=== PATIENT | male | born 1990 | race Caucasian/White ===

== ENCOUNTER 2019-05-11 15:04 | Inpatient (IN) | payer BC ==
[~2019-05-11] VITALS: Ht 172.7 cm; Wt 72.1 kg
[2019-05-11 15:29] VITALS: BP 155/80
[2019-05-11] MEDS ORDERED: INFLUENZA VIRUS VACCINE QVS 2019-20 (3YR+)/PF 60 MCG/0.5 ML SYRINGE IM ONE (15:45)
[2019-05-11] MEDS ORDERED: LITH300C3 PO (16:07)
[2019-05-11 16:42] VITALS: BP 134/82
[2019-05-11] MEDS ORDERED: BACITRACIN 28.4 GM OINTMENT TP PRN (17:45)
[2019-05-11] MEDS: LITHIUM CARBONATE 300 MG CAPSULE PO SCH (21:38)
[2019-05-11] MEDS: ZOLPIDEM TARTRATE 10 MG TABLET PO PRN (22:04)
[2019-05-12] MEDS: LORazepam 2 MG TABLET PO PRN ×2 (00:55→08:00)
[2019-05-12 05:56] VITALS: BP 120/82
[2019-05-12] MEDS: LITHIUM CARBONATE 300 MG CAPSULE PO SCH ×3 (08:00→17:06)
[2019-05-12 08:52] VITALS: BP 146/84
[2019-05-12] MEDS ORDERED: LORazepam 2 MG/ML VIAL ONE (10:00)
[2019-05-12] MEDS ORDERED: HALOPERIDOL LACTATE 5 MG/ML VIAL ONE (10:01)
[2019-05-12] MEDS ORDERED: DiphenhydrAMINE HCL 50 MG/ML VIAL ONE (10:01)
[2019-05-12] MEDS ORDERED: LORazepam 2 MG/ML VIAL IM ONE ×3 (10:30→22:00)
[2019-05-12] MEDS ORDERED: HALOPERIDOL LACTATE 5 MG/ML VIAL IM ONE ×2 (10:30→22:00)
[2019-05-12] MEDS ORDERED: DiphenhydrAMINE HCL 50 MG/ML VIAL IM ONE ×3 (10:30→22:00)
[2019-05-12 16:01] VITALS: BP 153/82
[2019-05-13 06:51] VITALS: BP 136/84
[2019-05-13 07:30] LABS: BASOPHILS % (AUTO) 0.3 % (0.0-2.0); EOSINOPHILS % (AUTO) 1.3 % (1.0-6.0); LYMPHOCYTES # (AUTO) 1.7 K/uL (1.0-4.8); LYMPHOCYTES % (AUTO) 16.2 % (22.0-44.0); MEAN CORPUSCULAR HEMOGLOBIN 32.1 pg (26.0-34.0); MEAN CORPUSCULAR VOLUME 94 fL (80-100); MONOCYTES # (AUTO) 0.9 K/uL (0.1-1.0); MONOCYTES % (AUTO) 8.2 % (2.0-9.0); NEUTROPHILS # (AUTO) 7.7 K/uL (1.8-7.7); PLATELET COUNT (AUTO) 320 K/uL (150-450); RED BLOOD CELL COUNT(AUTO) 4.35 MIL/uL (4.50-5.90); RED CELL DISTRIBUTION WIDTH 13.1 % (11.5-14.5)
[2019-05-13 07:49] LABS: LITHIUM 0.31 mmol/L (0.60-1.20)
[2019-05-13 08:08] LABS: ALANINE AMINOTRANSFERASE 33 U/L (12-78); ALBUMIN 4.7 g/dL (3.4-5.0); ALKALINE PHOSPHATASE 52 U/L (46-116); ANION GAP 11 mmol/L (8-16); ASPARTATE AMINOTRANSFERASE 60 U/L (15-37); BILIRUBIN,TOTAL 1.1 mg/dL (0.1-1.0); CARBON DIOXIDE 26 mmol/L (22-29); CHLORIDE 101 mmol/L (98-107); CHOL/HDL RATIO 1.5 (4.2-7.3); CHOLESTEROL 128 mg/dL (131-200); CREATININE 0.91 mg/dL (0.60-1.30); FREE T4 (FREE THYROXINE) 1.41 ng/dL (0.76-1.46); GLOMERULAR FILTR. RATE CALC > 60 mL/min (>60); GLUCOSE,RANDOM 102 mg/dL (70-110); HDL CHOLESTEROL 83 mg/dL (40-60); LDL CHOL (CALC.) 40 mg/dL (0-130); POTASSIUM 3.5 mmol/L (3.5-5.1); SODIUM SERUM 138 mmol/L (136-145); TRIGLYCERIDES 25 mg/dL (15-150); UREA NITROGEN, BLOOD 7 mg/dL (7-18)
[2019-05-13 08:11] VITALS: BP 136/67
[2019-05-13] MEDS: LITHIUM CARBONATE 300 MG CAPSULE PO SCH ×3 (08:13→16:14)
[2019-05-13] MEDS ORDERED: SERTRALINE HCL 100 MG TABLET PO SCH (10:45)
[2019-05-13] MEDS: LORazepam 1 MG TABLET PO SCH ×2 (12:15→16:14)
[2019-05-13] MEDS: RisperiDONE 1 MG TABLET PO SCH ×2 (12:28→16:14)
[2019-05-13 16:05] VITALS: BP 133/76
[2019-05-13] MEDS ORDERED: RisperiDONE 1 MG TABLET PO SCH (21:00)
[2019-05-13] MEDS: ZOLPIDEM TARTRATE 10 MG TABLET PO PRN (21:09)
[2019-05-13] MEDS ORDERED: DiphenhydrAMINE HCL 50 MG/ML VIAL ONE (23:45)
[2019-05-13] MEDS ORDERED: HALOPERIDOL LACTATE 5 MG/ML VIAL ONE (23:45)
[2019-05-13] MEDS ORDERED: LORazepam 2 MG/ML VIAL ONE (23:46)
[2019-05-14] VITALS (9 sets, daily range): BP systolic 120–141; BP diastolic 70–86
[2019-05-14] MEDS ORDERED: HALOPERIDOL LACTATE 5 MG/ML VIAL IM ONE ×2 (00:15→22:00)
[2019-05-14] MEDS: LORazepam 1 MG TABLET PO SCH ×3 (09:00→16:35)
[2019-05-14] MEDS: RisperiDONE 1 MG TABLET PO SCH ×3 (09:00→16:35)
[2019-05-14] MEDS: LITHIUM CARBONATE 300 MG CAPSULE PO SCH ×3 (09:00→16:36)
[2019-05-14] MEDS: AMOX TR/POT CLAV 875 MG/125 MG TABLET PO SCH (16:35)
[2019-05-14] MEDS ORDERED: LORazepam 2 MG/ML VIAL ONE (21:54)
[2019-05-14] MEDS ORDERED: DiphenhydrAMINE HCL 50 MG/ML VIAL ONE (21:54)
[2019-05-14] MEDS ORDERED: HALOPERIDOL LACTATE 5 MG/ML VIAL ONE (21:55)
[2019-05-14] MEDS ORDERED: DiphenhydrAMINE HCL 50 MG/ML VIAL IM ONE ×2 (22:00)
[2019-05-14] MEDS ORDERED: LORazepam 2 MG/ML VIAL IM ONE ×2 (22:00)
[2019-05-15] MEDS: LORazepam 1 MG TABLET PO PRN ×2 (07:50→20:35)
[2019-05-15] MEDS: AMOX TR/POT CLAV 875 MG/125 MG TABLET PO SCH ×2 (07:50→16:21)
[2019-05-15] MEDS: LORazepam 1 MG TABLET PO SCH ×3 (07:50→16:21)
[2019-05-15] MEDS: LITHIUM CARBONATE 300 MG CAPSULE PO SCH (07:50)
[2019-05-15] MEDS: RisperiDONE 1 MG TABLET PO SCH (07:50)
[2019-05-15 10:33] VITALS: BP 136/80
[2019-05-15] MEDS: LITHIUM CARBONATE 300 MG TABLET PO SCH ×2 (12:30→16:22)
[2019-05-15] MEDS: RisperiDONE 2 MG TABLET PO SCH ×2 (12:43→16:21)
[2019-05-15 16:30] VITALS: BP 120/69
[2019-05-16] MEDS: ZOLPIDEM TARTRATE 10 MG TABLET PO PRN (00:12)
[2019-05-16 01:22] VITALS: BP 131/80
[2019-05-16 08:13] VITALS: BP 128/79
[2019-05-16] MEDS: AMOX TR/POT CLAV 875 MG/125 MG TABLET PO SCH ×2 (09:57→16:55)
[2019-05-16] MEDS: LORazepam 1 MG TABLET PO SCH ×3 (09:57→16:55)
[2019-05-16] MEDS: LITHIUM CARBONATE 300 MG TABLET PO SCH ×3 (09:57→16:55)
[2019-05-16] MEDS: RisperiDONE 2 MG TABLET PO SCH ×3 (09:57→16:55)
[2019-05-16] MEDS: LORazepam 1 MG TABLET PO PRN (14:32)
[2019-05-16 18:00] VITALS: BP 126/78
[2019-05-17] MEDS: LORazepam 1 MG TABLET PO SCH ×3 (08:02→17:22)
[2019-05-17] MEDS: RisperiDONE 2 MG TABLET PO SCH ×3 (08:02→17:22)
[2019-05-17] MEDS: AMOX TR/POT CLAV 875 MG/125 MG TABLET PO SCH ×2 (08:02→17:21)
[2019-05-17] MEDS: LITHIUM CARBONATE 300 MG TABLET PO SCH ×3 (08:03→17:21)
[2019-05-17 12:51] VITALS: BP 132/72
[2019-05-17 20:18] VITALS: BP 127/76
[2019-05-18 08:00] VITALS: BP 156/89
[2019-05-18] MEDS: LORazepam 1 MG TABLET PO SCH (08:09)
[2019-05-18] MEDS: LITHIUM CARBONATE 300 MG TABLET PO SCH ×3 (08:09→16:21)
[2019-05-18] MEDS: AMOX TR/POT CLAV 875 MG/125 MG TABLET PO SCH ×2 (08:09→16:19)
[2019-05-18] MEDS: RisperiDONE 2 MG TABLET PO SCH ×3 (08:09→16:21)
[2019-05-18] MEDS: LORazepam 0.5 MG TABLET PO SCH ×2 (13:20→20:55)
[2019-05-18] MEDS: LORazepam 1 MG TABLET PO PRN ×2 (16:19→16:30)
[2019-05-18 16:24] VITALS: BP 128/81
[2019-05-19 08:44] VITALS: BP 131/66
[2019-05-19] MEDS: AMOX TR/POT CLAV 875 MG/125 MG TABLET PO SCH (08:50)
[2019-05-19] MEDS: RisperiDONE 2 MG TABLET PO SCH ×2 (08:50→12:23)
[2019-05-19] MEDS: LITHIUM CARBONATE 300 MG TABLET PO SCH ×2 (08:51→12:23)
[2019-05-19] MEDS: LORazepam 0.5 MG TABLET PO SCH ×2 (08:53→12:23)
[2019-05-19] MEDS ORDERED: MULTIVITAMINS WITH MINERALS, THERAPEUTIC TABLET PO SCH (09:00)
[2019-05-19] MEDS ORDERED: LITH450CRT PO (13:41)
[2019-05-19] MEDS ORDERED: LORA0.5T83 PO (13:41)
[2019-05-19] MEDS ORDERED: RISP2 PO (13:42)
[2019-05-19] MEDS ORDERED: RISP2TAB76 PO (13:42)
[2019-05-19] MEDS ORDERED: AMOX1TAB16 PO (13:45)
[2019-05-19] MEDS ORDERED: BACI30OI6 TP (13:48)
== END 2019-05-19 15:10 | disposition home or self-care (01) | DRG 885 ==
LOC: B2X 16:13 → 3EC 05-14 11:45
DX: F31.2 Bipolar disorder, current episode manic severe with psychotic features (principal); F31.9 Bipolar disorder, unspecified; F41.9 Anxiety disorder, unspecified; W18.39XA Other fall on same level, initial encounter; Y93.89 Activity, other specified; Z91.5 Personal history of self-harm; Y92.89 Other specified places as the place of occurrence of the external cause; Y99.8 Other external cause status
CPT/HCPCS: 84439; J1200; J1630; J2060; J3230

== ENCOUNTER 2019-05-14 08:15 | Emergency (ER) | payer BC ==
[~2019-05-14] VITALS: Ht 170.2 cm; Wt 75.0 kg
[~2019-05-14 08:15] MED LIST: LITH300C3 PO
[2019-05-14] MEDS ORDERED: BACITRACIN 0.9 GM PACKET OINTMENT TP ONE (09:00)
[2019-05-14] MEDS ORDERED: AMOX TR/POT CLAV 875 MG/125 MG TABLET PO ONE (09:00)
[2019-05-14] MEDS ORDERED: LORazepam 2 MG/ML VIAL IM ONE ×2 (09:15→11:15)
[2019-05-14 11:02] VITALS: BP 124/70
[2019-05-14] MEDS ORDERED: DiphenhydrAMINE HCL 50 MG/ML VIAL IM ONE (11:15)
[2019-05-14] MEDS ORDERED: HALOPERIDOL LACTATE 5 MG/ML VIAL IM ONE (11:15)
== END 2019-05-14 15:28 | disposition home or self-care (01) ==
LOC: EMS 08:15
DX: S61.451A Open bite of right hand, initial encounter (principal); S09.90XA Unspecified injury of head, initial encounter; L03.113 Cellulitis of right upper limb; Z79.899 Other long term (current) drug therapy; W18.39XA Other fall on same level, initial encounter; Y93.02 Activity, running; Y92.89 Other specified places as the place of occurrence of the external cause; Y99.8 Other external cause status
CPT/HCPCS: 96372; 99283; J2060; J1200; J1630